=== PATIENT | female | born 2000 | race Caucasian/White ===

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

== ENCOUNTER 2019-04-28 02:25 | Emergency (ER) | payer SELFPAY ==
[~2019-04-28] VITALS: Ht 162.6 cm; Wt 92.2 kg
[2019-04-28 02:35] VITALS: Ht 162.6 cm; Wt 92.2 kg
[2019-04-28 03:23] LABS: BASOPHIL % 0.7 % (0-2); PLATELET COUNT 328 x10^3mcL (130-400); RED CELL DISTRIBUTION WIDTH 13.2 % (11.5-14.5)
[2019-04-28 06:02] VITALS: BP 122/89
== END 2019-04-28 06:02 | disposition home or self-care (01) ==
LOC: ED 02:25
PROVIDERS: Emergency Medicine
DX: O20.0 Threatened abortion (principal); Z3A.00 Weeks of gestation of pregnancy not specified
CPT/HCPCS: 36415

== ENCOUNTER 2019-04-29 19:22 | Emergency (ER) | payer SELFPAY ==
[~2019-04-29] VITALS: Ht 154.9 cm; Wt 91.6 kg
[2019-04-29 20:00] VITALS: Ht 154.9 cm; Wt 91.6 kg
[2019-04-29 22:16] VITALS: BP 128/83
== END 2019-04-29 22:16 | disposition home or self-care (01) ==
LOC: ED 19:22
DX: O20.0 Threatened abortion (principal); J45.909 Unspecified asthma, uncomplicated
CPT/HCPCS: 36415